=== PATIENT | female | born 1970 | race Hispanic/Latino ===

== ENCOUNTER → 2017-07-14 | Outpatient (CLI) | payer OTHER ==
[~2017-07-14] MED LIST: ASACOL400 MG PO; BENTYL10 MG PO; CIPRO500 MG PO; DEXILANT60 MG PO; DIAZEPAM5 MG PO; LOMOTIL TABLET1 EACH PO; NEXIUM40 MG PO; PANTOPRAZOLE SO40 MG PO; PAXIL10 MG PO; TYLENOL EXTRA500 MG PO; UCERIS PO
--- NOTE | 2017-07-14 17:38 | Diagnostic Imaging Report ---
PROCEDURE: Frontal and lateral views of the chest. COMPARISON: None. INDICATIONS: SHORT OF BREATH FINDINGS: Lines/tubes: None. Lungs: The lungs are well inflated and clear. There is no evidence of pneumonia or pulmonary edema. Pleura: There is no pleural effusion or pneumothorax. Heart and mediastinum: The heart and the mediastinum are normal. Bones: No acute bony abnormality. Minimal spondylosis of thoracic spine. IMPRESSION: 1. No acute cardiopulmonary disease. Elijah Spears M.D. Dictated by: Elijah Spears M.D. on 07/14/2017 at 17:46 Electronically approved by: Elijah Spears M.D. on 07/14/2017 at 17:46
== END ==
LOC: RAD 16:39
PROVIDERS: ATTEND Internal Medicine
DX: R06.02 Shortness of breath (principal)
CPT/HCPCS: 71020

== ENCOUNTER → 2019-04-17 | Outpatient (CLI) | payer OTHER ==
--- NOTE | 2019-04-17 10:36 | Diagnostic Imaging Report ---
Pelvic ultrasound Clinical History: Periumbilical pain Discussion: Sonographic evaluation of the pelvis is performed transabdominally and transvaginally. The uterus is 9.8 x 4.1 x 5.0 cm and demonstrates homogeneous echotexture, without focal mass. The endometrial echocomplex is homogeneous and measures 3mm. The ovaries have normal size and appearance. The right ovary measures 2.0 x 2.0 x 2.5 cm. The left ovary measures 2 x 1.9 x 1.8 cm. No free fluid is identified in the area scanned. Impression: Normal pelvic ultrasound evaluation. Signed by: Dr. Yoandy Menchaca MD on 04/17/2019 10:33 AM
--- NOTE | 2019-04-17 10:39 | Diagnostic Imaging Report ---
EXAM: US ABDOMEN COMPLETE DATE: 04/17/2019 8:08 AM INDICATION: Abdominal pain COMPARISON: None TECHNIQUE: Transverse and longitudinal lucero scale and color doppler sonographic images of the upper abdomen were obtained. FINDINGS: LIVER 17.1 cm in the right midclavicular line. Normal echogenicity, normal contour, no masses. SPLEEN 12.0 cm in maximum diameter. Normal echogenicity, no masses. GALLBLADDER Removed. BILE DUCTS No intra nor extra-hepatic biliary dilation. Common bile duct measures 0.5 cm PANCREAS: Limited visualization due to bowel gas. RIGHT KIDNEY: 12.7 cm Echogenicity: Normal Collecting System: No hydronephrosis Stones: None Cyst/Mass: None LEFT KIDNEY: 12.0 cm Echogenicity: Normal Collecting System: No hydronephrosis Stones: None Cyst/Mass: None VESSELS: Aorta: Visualized portions are within normal size limits Inferior Vena Cava: Visualized portions are normal Main Portal Vein: 0.8 cm, normal size with hepatopetal flow. FREE FLUID: None IMPRESSION: 1. Status post cholecystectomy. Otherwise, unremarkable abdominal ultrasound. Signed by: Dr. Yoandy Menchaca MD on 04/17/2019 10:36 AM
== END ==
LOC: US 07:52
PROVIDERS: ATTEND Internal Medicine Gastroenterology
DX: R10.13 Epigastric pain (principal); R10.33 Periumbilical pain
CPT/HCPCS: 76700; 76856

== ENCOUNTER 2020-07-18 09:18 | Emergency (ER) | payer SELFPAY ==
[~2020-07-18] VITALS: Ht 162.6 cm; Wt 117.9 kg
== END 2020-07-18 10:09 | disposition home or self-care (01) ==
LOC: ER 09:40
DX: U07.1 COVID-19 (principal); R05 Cough; R06.00 Dyspnea, unspecified; K21.9 Gastro-esophageal reflux disease without esophagitis; E66.01 Morbid (severe) obesity due to excess calories
CPT/HCPCS: 99282